=== PATIENT | female | born 1980 | race Caucasian/White ===

== ENCOUNTER 2017-10-20 13:00 | Emergency (ER) | payer MEDICAID ==
[~2017-10-20] VITALS: Ht 152.4 cm; Wt 68.0 kg
[2017-10-20 13:11] VITALS: Ht 152.4 cm; Wt 68.0 kg
[2017-10-20 13:50] LABS: BASOPHIL % 0.6 % (0-2); PLATELET COUNT 352 x10^3mcL (130-400); RED CELL DISTRIBUTION WIDTH 12.6 % (11.5-14.5)
[2017-10-20 14:00] LABS: CALCIUM 8.3 mg/dL (8.5-10.1); CARBON DIOXIDE 28.2 mmol/L (21-32); CHLORIDE SERUM 105 mmol/L (98-107); CREATININE SERUM 0.7 mg/dL (0.6-1.0); GFR1 > 60 mL/min; GLUCOSE SERUM 142 mg/dL (74-106); POTASSIUM SERUM 3.5 mmol/L (3.5-5.1); SODIUM SERUM 140 mmol/L (136-145)
[2017-10-20 14:01] LABS: ALBUMIN 3.1 g/dL (3.4-5.0); ALKALINE PHOSPHATASE 53 U/L (46-116); ALT/SGPT 25 U/L (14-59); AST/SGOT 13 U/L (15-37); TOTAL PROTEIN, SERUM 6.2 g/dL (6.4-8.2)
[2017-10-20 14:26] LABS: BILIRUBIN TOTAL 0.1 mg/dL (0.20-1.00)
[2017-10-20 14:33] VITALS: BP 138/91
== END 2017-10-20 15:25 | disposition home or self-care (01) ==
LOC: ED 13:00
PROVIDERS: Emergency Medicine
DX: R07.89 Other chest pain (principal); I10 Essential (primary) hypertension
CPT/HCPCS: 36415

== ENCOUNTER 2019-05-16 13:58 | Emergency (ER) | payer MEDICAID ==
[~2019-05-16] VITALS: Ht 154.9 cm; Wt 73.9 kg
[2019-05-16 14:10] VITALS: Ht 154.9 cm; Wt 73.9 kg
[2019-05-16 16:23] LABS: BASOPHIL % 0.4 % (0-2); PLATELET COUNT 373 x10^3mcL (130-400)
[2019-05-16 16:26] LABS: RED CELL DISTRIBUTION WIDTH 18.2 % (11.5-14.5)
[2019-05-16 16:40] LABS: ALKALINE PHOSPHATASE 75 U/L (46-116); ALT/SGPT 36 U/L (14-59); AST/SGOT 24 U/L (15-37); CHLORIDE SERUM 107 mmol/L (98-107); CREATININE SERUM 0.7 mg/dL (0.6-1.0); GFR1 > 60 mL/min; GLUCOSE SERUM 139 mg/dL (74-106); MAGNESIUM 1.7 mg/dL (1.8-2.4); POTASSIUM SERUM 3.7 mmol/L (3.5-5.1); SODIUM SERUM 141 mmol/L (136-145); TOTAL PROTEIN, SERUM 6.6 g/dL (6.4-8.2)
[2019-05-16 16:45] LABS: ALBUMIN 3.2 g/dL (3.4-5.0)
[2019-05-16 16:57] LABS: BILIRUBIN TOTAL 0.1 mg/dL (0.20-1.00); CARBON DIOXIDE 27.8 mmol/L (21-32)
[2019-05-16 18:57] VITALS: BP 153/83
== END 2019-05-16 18:58 | disposition home or self-care (01) ==
LOC: ED 13:58
PROVIDERS: Emergency Medicine
DX: D64.9 Anemia, unspecified (principal); R51 Headache; R42 Dizziness and giddiness; I10 Essential (primary) hypertension
CPT/HCPCS: 36415; Q0092

== ENCOUNTER 2019-09-17 09:37 | Emergency (ER) | payer MEDICAID ==
[~2019-09-17] VITALS: Ht 152.4 cm; Wt 75.3 kg
[2019-09-17 09:45] VITALS: Ht 152.4 cm; Wt 75.3 kg
[2019-09-17 10:56] LABS: CALCIUM 8.8 mg/dL (8.5-10.1); CARBON DIOXIDE 27.4 mmol/L (21-32); CHLORIDE SERUM 102 mmol/L (98-107); CREATININE SERUM 0.7 mg/dL (0.6-1.0); GFR1 > 60 mL/min; GLUCOSE SERUM 326 mg/dL (74-106); POTASSIUM SERUM 4.2 mmol/L (3.5-5.1); SODIUM SERUM 135 mmol/L (136-145)
[2019-09-17 10:57] LABS: BASOPHIL % 0.6 % (0-2)
[2019-09-17 11:00] LABS: ALBUMIN 3.5 g/dL (3.4-5.0); ALKALINE PHOSPHATASE 134 U/L (46-116); ALT/SGPT 40 U/L (14-59); AST/SGOT 15 U/L (15-37); BILIRUBIN TOTAL 0.25 mg/dL (0.20-1.00); PLATELET COUNT 447 x10^3mcL (130-400); RED CELL DISTRIBUTION WIDTH 14.8 % (11.5-14.5); TOTAL PROTEIN, SERUM 7.5 g/dL (6.4-8.2)
[2019-09-17 11:49] VITALS: BP 156/96
== END 2019-09-17 11:49 | disposition home or self-care (01) ==
LOC: ED 09:37
PROVIDERS: Emergency Medicine
DX: R07.89 Other chest pain (principal); R51 Headache; E11.9 Type 2 diabetes mellitus without complications; I10 Essential (primary) hypertension
CPT/HCPCS: 36415; Q0092